=== PATIENT | female | born 1950 | race Caucasian/White ===

== ENCOUNTER 2022-11-30 05:48 | Inpatient (IN) ==
[2022-11-24 16:24] LABS: Basophils % 0.4 % (0.0-0.8); Eosinophils # 0.3 10*3/uL (0.0-0.87); Eosinophils % 2.9 % (0.00-10.9); Hematocrit 38.1 VOL% (35.7-47.0); Hemoglobin 12.6 GM/DL (12.0-16.0); Immature Granulocytes % 0.6 %; Immature Granulocytes Absolute 0.05 #; Lymphocytes # 1.8 10*3/uL (1.4-4.0); Lymphocytes % 20.3 % (21.3-54.2); Mean Corpuscular HGB Conc 33.1 GM/DL (32-36); Mean Corpuscular Volume 92.3 FL (87-102); Mean Platelet Volume 10.7 FL (9.6-12.0); Monocytes # 0.7 10*3/uL (0.11-0.8); Monocytes % 7.5 % (1.7-12.7); Neutrophils % 68.3 % (38.7-73.9); Platelet Count 333 T/CUMM (130-400); Red Blood Count 4.13 MC/CUMM (3.8-5.5); Red Cell Distribution Width 14.3 % (9.3-17.3); White Blood Count 8.9 T/CUMM (4-12)
[2022-11-24 16:25] LABS: Bacteria,Urine Occasional /HPF (Few); Hyaline Casts,Urine 4 /LPF (0-3); Mucus,Urine Few /LPF (Occasional); RBC,Urine 1 /HPF (0-4); Squamous Epithelial Cell,Urine Occasional /HPF (0-10); Urine Appearance Clear (Clear); Urine Color Yellow (Yellow); Urine Specific Gravity 1.025 (1.001-1.035); Urine pH 5.5 (4.5-8.0)
[2022-11-24 16:26] LABS: Bilirubin,Urine Negative (Negative); Blood, Urine Negative (Negative); Glucose,Urine (UA) Negative (Negative); Ketones,Urine Trace mg/dL (Negative); Nitrite,Urine Negative (Negative); Protein,Urine Negative (Negative); Urine Urobilinogen 0.2 eU/dL (<2.0)
[2022-11-24 16:35] LABS: PT Patient Result 10.6 SECS (10.1-12.1)
[2022-11-24 16:40] LABS: Calcium 9.2 MG/DL (8.5-10.1); Osmolality,Calculated 284.4 MOS/KG (273-304); Potassium 4.4 MMOL/L (3.5-5.1)
[2022-11-30] MEDS ORDERED: cefTRIAXone 1,000 MG VIAL ONE (05:53)
[2022-11-30] MEDS ORDERED: LACTATED RINGERS 1,000 ML IV SCH (06:00)
[2022-11-30] MEDS ORDERED: cefTRIAXone 1,000 MG in SODIUM CHLORIDE 0.9% 100 ML IV ONE (06:00)
[2022-11-30] MEDS ORDERED: GABAPENTIN 400 MG CAPSULE PO ONE (07:13)
[2022-11-30] MEDS ORDERED: DIAZEPAM 5 MG TABLET PO ONE (07:13)
[2022-11-30] MEDS ORDERED: ACETAMINOPHEN 500 MG TABLET PO ONE (07:13)
[2022-11-30] MEDS ORDERED: SCOPOLAMINE 1.5 MG PATCH TRANSDERM ONE (07:13)
[2022-11-30] MEDS ORDERED: FAMOTIDINE 20 MG TABLET PO ONE (07:13)
[2022-11-30] MEDS ORDERED: LIDOCAINE 2% 5 ML VIAL ONE (08:34)
[2022-11-30] MEDS ORDERED: propofoL 200 MG/20 ML VIAL IV ONE (08:34)
[2022-11-30] MEDS ORDERED: ROCURONIUM 50 MG/5 ML VIAL IV ONE (08:34)
[2022-11-30] MEDS ORDERED: fentaNYL 100 MCG/2 ML VIAL ONE ×3 (08:35→11:04)
[2022-11-30] MEDS ORDERED: BUPIVACAINE 0.5% 50 ML VIAL ONE (08:38)
[2022-11-30] MEDS ORDERED: DEXAMETHASONE 4 MG/1 ML VIAL ONE ×2 (08:38→09:57)
[2022-11-30] MEDS ORDERED: MIDAZOLAM 2 MG/2 ML VIAL ONE (08:40)
[2022-11-30] MEDS ORDERED: LIDOCAINE 1% 5 ML VIAL ONE (08:41)
[2022-11-30] MEDS ORDERED: FAMOTIDINE 20 MG/2 ML VIAL IV ONE (08:48)
[2022-11-30] MEDS ORDERED: ePHEDrine 50 MG/ML VIAL ONE (09:50)
[2022-11-30] MEDS ORDERED: ONDANSETRON 4 MG/2 ML VIAL ONE (09:57)
[2022-11-30] MEDS ORDERED: ACETAMINOPHEN INJ 1,000 MG/100 ML VIAL IV ONE (09:58)
[2022-11-30] MEDS ORDERED: LACTATED RINGERS 2,000 ML IV ONE (09:58)
[2022-11-30] MEDS ORDERED: SUGAMMADEX 200 MG/2 ML VIAL IV ONE (10:43)
[2022-11-30] MEDS ORDERED: IBUPROFEN 800 MG TABLET PO PRN (11:13)
[2022-11-30] MEDS ORDERED: BENZOCAINE/MENTHOL LOZENGE 18/BOX PO PRN (11:13)
[2022-11-30] MEDS ORDERED: DOCUSATE SODIUM 100 MG CAPSULE PO PRN (11:13)
[2022-11-30] MEDS ORDERED: BISACODYL 10 MG SUPP RECTAL PRN (11:13)
[2022-11-30] MEDS ORDERED: MAGNESIUM HYDROXIDE SUSP 30 ML UDCUP PO PRN (11:13)
[2022-11-30] MEDS ORDERED: ACETAMINOPHEN 325 MG TABLET PO PRN (11:13)
[2022-11-30 11:41] LABS: Hyaline Casts,Urine 3 /LPF (0-3); Mucus,Urine Occasional /LPF (Occasional); Squamous Epithelial Cell,Urine Occasional /HPF (0-10)
[2022-11-30 11:44] LABS: Bilirubin,Urine Negative (Negative); Blood, Urine Trace mg/dL (Negative); Glucose,Urine (UA) Negative (Negative); Ketones,Urine 15 mg/dL (Negative); Nitrite,Urine Negative (Negative); Protein,Urine Negative (Negative); Urine Appearance Clear (Clear); Urine Color Yellow (Yellow); Urine Urobilinogen 0.2 eU/dL (<2.0)
[2022-11-30] MEDS ORDERED: ONDANSETRON 4 MG/2 ML VIAL IV PRN (12:00)
[2022-11-30] MEDS ORDERED: HYDROmorphone 1 MG/1 ML SYRINGE IV PRN ×2 (12:00→17:55)
[2022-11-30] MEDS: ONDANSETRON 4 MG/2 ML VIAL IV PRN ×2 (14:19→18:09)
[2022-11-30] MEDS ORDERED: FUROSEMIDE 20 MG/2 ML VIAL IV ONE (18:19)
[2022-11-30] MEDS: LACTATED RINGERS 1,000 ML IV SCH (18:49)
[2022-12-01] MEDS: LACTATED RINGERS 1,000 ML IV SCH ×3 (01:16→23:06)
[2022-12-01 06:12] LABS: Basophils % 0.1 % (0.0-0.8); Hemoglobin 11.6 GM/DL (12.0-16.0); Immature Granulocytes % 0.5 %; Immature Granulocytes Absolute 0.09 #; Lymphocytes # 0.5 10*3/uL (1.4-4.0); Mean Corpuscular HGB Conc 33.1 GM/DL (32-36); Mean Corpuscular Volume 93.3 FL (87-102); Mean Platelet Volume 10.5 FL (9.6-12.0); Monocytes % 5.8 % (1.7-12.7); Neutrophils % 90.6 % (38.7-73.9); Platelet Count 265 T/CUMM (130-400); Red Blood Count 3.75 MC/CUMM (3.8-5.5); Red Cell Distribution Width 14.6 % (9.3-17.3); White Blood Count 17.5 T/CUMM (4-12)
[2022-12-01 06:34] LABS: Band Neutrophils 3 % (0-10); Lymphocytes 6 % (20-55); Platelet Estimate Adequate; Total Cells Counted 100
[2022-12-01 06:35] LABS: Hypochromia Slight; Microcytosis Slight
[2022-12-01 06:38] LABS: Calcium 8.4 MG/DL (8.5-10.1); Osmolality,Calculated 285.5 MOS/KG (273-304); Potassium 4.4 MMOL/L (3.5-5.1)
[2022-12-01] MEDS ORDERED: cefTRIAXone 1,000 MG in SODIUM CHLORIDE 0.9% 100 ML IV ONE (07:12)
[2022-12-01] MEDS ORDERED: MIDAZOLAM 2 MG/2 ML VIAL ONE (08:07)
[2022-12-01] MEDS ORDERED: fentaNYL 100 MCG/2 ML VIAL ONE (08:07)
[2022-12-01] MEDS ORDERED: ONDANSETRON 4 MG/2 ML VIAL ONE (08:10)
[2022-12-01] MEDS ORDERED: LIDOCAINE 2% 5 ML VIAL ONE (08:10)
[2022-12-01] MEDS ORDERED: propofoL 200 MG/20 ML VIAL IV ONE (08:10)
[2022-12-01] MEDS ORDERED: SEVOFLURANE 1 UNIT/15 MINUTE INH ONE (08:10)
[2022-12-01] MEDS ORDERED: ceFAZolin 1,000 MG VIAL ONE (09:15)
[2022-12-01] MEDS ORDERED: LACTATED RINGERS 1,000 ML IV ONE (09:15)
[2022-12-01] MEDS: oxyCODONE/ACETAMINOPHEN 5-325 MG TABLET PO PRN (15:05)
[2022-12-02] MEDS: oxyCODONE/ACETAMINOPHEN 5-325 MG TABLET PO PRN (02:19)
[2022-12-02] MEDS: LACTATED RINGERS 1,000 ML IV SCH (06:12)
[2022-12-02 06:28] LABS: Calcium 8.7 MG/DL (8.5-10.1); Osmolality,Calculated 288.3 MOS/KG (273-304); Potassium 4.7 MMOL/L (3.5-5.1)
[2022-12-02 07:19] VITALS: BP 144/66
== END 2022-12-02 14:20 | disposition home or self-care (01) | DRG 742 ==
LOC: N.OR 05:48 → N.SDSINP 05:50 → N.OB 09:29
PROVIDERS: ADMIT Specialist; ATTEND Specialist